=== PATIENT | male | born 1990 | race Caucasian/White ===

== ENCOUNTER 2017-02-15 08:32 | Emergency (ER) | payer OTHER ==
[2017-02-15 09:12] LABS: BASOPHILS 0.4 % (0.0-2.0); HEMATOCRIT 43.8 % (42.0-54.0); HEMOGLOBIN 15.3 g/dL (14.0-18.0); LYMPHOCYTES 21.3 % (20.0-40.0); LYMPHOCYTES# 1.2 X 10^3uL (0.8-3.8); MEAN CELL VOLUME 86.3 fL (80.0-100.0); MEAN CORPUSCULAR HEMOGLOBIN 30.2 pg (29.0-35.0); MEAN PLATELET VOLUME 7.2 fL (7.4-10.4); MONOCYTES 11.4 % (2.0-10.0); MONOCYTES# 0.7 X 10^3uL (0.2-1.0); NEUTROPHILS 66.9 % (54.0-75.0); NEUTROPHILS# 3.9 X 10^3uL (2.6-6.7); PLATELET COUNT 220 X 10^3uL (130-440); RED BLOOD COUNT 5.07 X 10^6uL (4.20-6.10); RED CELL DISTRIBUTION WIDTH 12.5 % (11.5-14.5)
[2017-02-15 09:16] LABS: A/G RATIO 1.6; ALBUMIN 4.5 g/dL (3.5-5.0); ALKALINE PHOSPHATASE 48 U/L (38-126); ALT 39 U/L (21-72); AST 27 U/L (17-59); BLOOD UREA NITROGEN 20 mg/dL (9-20); CALCIUM 9.8 mg/dL (8.4-10.2); CHLORIDE 101 mmol/L (98-107); EST GLOMERULAR FILTRATION RATE > 60 mL/min; GLUCOSE 104 mg/dL (70-100); POTASSIUM 3.8 mmol/L (3.5-5.1); SODIUM 137 mmol/L (137-145); TOTAL PROTEIN 7.4 g/dL (6.3-8.2)
[2017-02-15] MEDS ORDERED: KETOROLAC TROMETHAMINE 30 MG/ML VIAL ONE (09:49)
--- NOTE | 2017-02-15 10:54 | ER PHYSICIAN DOCUMENTATION ---
Physician Documentation [facility] Name:Vazquez Byrnes Age:26 yrs Sex:Male :1990 Arrival Date:02/15/2017 Time:08:32 Bed4 Private MD: Christophe Childress Disposition: 02/15 11:00 Chart complete. tl1 Disposition: 02/15/17 10:45 Discharged to Home/Self Care. Impression: Fever, Diarrhea. - Condition is Good. - Discharge Instructions: DIARRHEA, Unk Cause (Adult) Report Pendg, FEBRILE ILLNESS, Uncertain Cause (Adult), FEVER CONTROL (Adult). - Medical Reconciliation form form. - Follow up: Christophe Willard MD; When: 4- 6 days; Reason: Recheck today's complaints. Follow up: Private Physician; When: 4- 6 days; Reason: Recheck today's complaints. - Problem is new. - Symptoms have improved. - Notes: OK to take immodium 2mg after each watery stool, as long as you are not having blood in your stool, severe pain or are otherwise severely ill. Bring stool samples back to the lab when you get them. HPI: 08:53 This 26 yrs old Male presents to ER via Private Vehicle with complaints of tl1 Fever. 09:00 The patient reports fever, not measured (subjective). Onset: The symptom(s)/episode tl1 began/occurred gradually, 4 day(s) ago. Associated signs and symptoms: Pertinent positives: diarrhea, myalgias, Pertinent negatives: abdominal pain, chest pain, cough, earache, headache, sinus congestion, sinus drainage, shortness of breath, sore throat, vomiting. Severity of symptoms: At their worst the symptoms were moderate in the emergency department the symptoms are unchanged. The patient has not experienced similar symptoms in the past. Historical: - Allergies: No known drug Allergies; - Home Meds: 1. None - PMHx: None; - PSHx: mag-orbital fracture repair; - Tetanus: < 10 years. - Ebola Screening: : Patient negative for fever greater than or equal to 101.5 degrees Fahrenheit, and additional compatible Ebola Virus Disease symptoms. Patient denies exposure to infectious person. Patient reports travel to an Ebola-affected area in the 21 days before illness onset. Patient reports to have traveled to [facility]. - Immunization history: Flu Vaccine < 1 year. - Social history: Smoking status: Patient states was never smoker of tobacco. ROS: 09:00 Constitutional: Positive for body aches, fatigue, fever, malaise, poor PO intake. tl1 09:00 All other systems are negative. Exam: 09:00 Constitutional: This is a well developed, well nourished patient who is awake, alert, tl1 and in no acute distress. Head/Face: Normocephalic, atraumatic. Eyes: Pupils equal round and reactive to light, extra-ocular motions intact. Lids and lashes normal. Conjunctiva and sclera are non-icteric and not injected. Cornea within normal limits. Periorbital areas with no swelling, redness, or edema. ENT: Nares patent. No nasal discharge, no septal abnormalities noted. Tympanic membranes are normal and external auditory canals are clear. Oropharynx with no redness, swelling, or masses, exudates, or evidence of obstruction, uvula midline. Mucous membranes moist. Cardiovascular: Regular rate and rhythm with a normal S1 and S2. No gallops, murmurs, or rubs. Normal PMI, no JVD. No pulse deficits. 09:00 Respiratory: Lungs have equal breath sounds bilaterally, clear to auscultation and tl1 percussion. No rales, rhonchi or wheezes noted. No increased work of breathing, no retractions or nasal flaring. 09:00 Abdomen/GI: Inspection: abdomen appears normal, Bowel sounds: active, Palpation: soft, mild abdominal tenderness, in all quadrants. 09:00 Skin: Exam negative for acute changes. Vital Signs: 08:47 BP 124 / 72; Pulse 96; Resp 16; Temp 102.5; Pulse Ox 91% on R/A; Weight 74.84 kg; lp Height 6 ft. 0 in. (182.88 cm); Pain 3/10; 10:08 BP 105 / 60; Pulse 91; Resp 14; Pulse Ox 90% on R/A; lp 10:28 BP 103 / 61; Pulse 92; Resp 16; Pulse Ox 92% on R/A; lp 08:47 Body Mass Index 22.38 (74.84 kg, 182.88 cm) lp MDM: 08:53 Patient medically screened. tl1 10:00 Differential diagnosis: viral Infection, bacterial infection, gastroenteritis, tl1 influenza. Data reviewed: vital signs, nurses notes, lab test result(s), and as a result, I will discharge patient. Counseling: I had a detailed discussion with the patient and/or guardian regarding: the historical points, exam findings, and any diagnostic results supporting the discharge/admit diagnosis, lab results, the need for outpatient follow up, to return to the emergency department if symptoms worsen or persist or if there are any questions or concerns that arise at home. Response to treatment: the patient's symptoms have markedly improved after treatment, and as a result, I will discharge patient. ED course: I doubt Flu A. The clinical syndrome is not c/w this; it is probably a false positive test. And at any rate, he is 4 days into this and I doubt tamiflu ebony do any good. He was unable to provide a stool sample here, so he was sent home with a stool sample collection kit.. 02/15 09:25 Order name: INFLUENZA A/B; Complete Time: 09:35 EDMS 02/15 09:34 Interpretation: Abnormal: INFLUENZA A/B INF A POS, B NEG. tl1 02/15 09:27 Order name: COMPREHENSIVE METABOLIC PANEL; Complete Time: 19:59 EDMS 02/15 09:34 Interpretation: Normal. tl1 02/15 09:59 Order name: CBC AUTO DIF, MDIF/RMOR IF IND; Complete Time: 19:59 EDMS 02/16 19:58 Interpretation: WHITE BLOOD COUNT 5.8; HEMOGLOBIN 15.3; HEMATOCRIT 43.8; PLATELET COUNT tl1 220. Dispensed Medications: No medications were administered Signatures: Silvina Jennings RN RN lp Leigh, Tom, MD MD tl1
--- NOTE | 2017-02-15 10:54 | ER NURSING DOCUMENTATION ---
Nurse's Notes [facility] Name:Vazquez Byrnes Age:26 yrs Sex:Male :1990 Arrival Date:02/15/2017 Time:08:32 Bed4 Private MD: Diagnosis:Fever;Diarrhea Presentation: 02/15 08:46 Presenting complaint: Patient states: Fever, chills, diarrhea. Transition of care: lp Home. Notified ED Physician of Dr. Willard notified. 08:46 Acuity: ROBERT 3 lp 08:46 Method Of Arrival: Private Vehicle lp Triage Assessment: 08:49 Pertinent positives: chills, diarrhea, myalgias. General: Appears in no apparent lp distress, Behavior is appropriate for age. Pain: Denies pain. EENT: No deficits noted. Neuro: Level of Consciousness is awake, alert, Oriented to person, place, time, event, Room Maid are equal bilaterally Moves all extremities. Cardiovascular: Heart tones S1 S2. Respiratory: Airway is patent Respiratory effort is even, unlabored, Breath sounds are clear bilaterally. Reports cough that is dry. GI: Bowel sounds present X 4 quads. Reports diarrhea. : No deficits noted. Derm: Skin is healthy with good turgor, Skin is pink, warm & dry. Musculoskeletal: No deficits noted. Historical: - Allergies: No known drug Allergies; - Home Meds: 1. None - PMHx: None; - PSHx: mag-orbital fracture repair; - Tetanus: < 10 years. - Ebola Screening: : Patient negative for fever greater than or equal to 101.5 degrees Fahrenheit, and additional compatible Ebola Virus Disease symptoms. Patient denies exposure to infectious person. Patient reports travel to an Ebola-affected area in the 21 days before illness onset. Patient reports to have traveled to [facility]. - Immunization history: Flu Vaccine < 1 year. - Social history: Smoking status: Patient states was never smoker of tobacco. Screenin:50 Infectious Disease Risk None. Abuse screen: Denies threats or abuse. Denies injuries lp from another. Nutritional screening: No deficits noted. Vital Signs: 08:47 BP 124 / 72; Pulse 96; Resp 16; Temp 102.5; Pulse Ox 91% on R/A; Weight 74.84 kg; lp Height 6 ft. 0 in. (182.88 cm); Pain 3/10; 10:08 BP 105 / 60; Pulse 91; Resp 14; Pulse Ox 90% on R/A; lp 10:28 BP 103 / 61; Pulse 92; Resp 16; Pulse Ox 92% on R/A; lp 08:47 Body Mass Index 22.38 (74.84 kg, 182.88 cm) lp ED Course: 08:34 Patient arrived in ED. dp 08:46 Silvina Jennings, RN is Primary Nurse. lp 08:47 Triage completed. lp 08:[address] Willard notified. lp 08:50 Valuables Remains with patient Patient has correct armband on for positive lp identification. Bed in low position. Call light in reach. Side rails up X 1. 08:53 Christophe Willard MD is Attending Physician. tl1 08:59 Inserted peripheral IV: 20 gauge in left forearm and blood collected. 09:00 Labs drawn. (by ED staff). Sent per order to lab. lc 10:44 Christophe Willard MD is Referral Physician. tl1 10:44 Referral Physician role handed off by Christophe Willard MD tl1 Administered Medications: No medications were administered Outcome: 10:28 Discharged to home ambulatory. lp 10:28 Condition: good 10:28 Instructed on discharge instructions, follow up and referral plans. medication usage. 10:45 Discharge ordered by . tl1 10:53 Patient left the ED. lp 07 10:21 Discharge F/U Call: Unable to reach: no answer rh Signatures: Margarita Cota RN RN Silvina Jennings RN RN Christophe Willard MD MD tl1 Jesi Webber rh Lena Bustillos dp
[2017-02-21 14:30] LABS: WHITE BLOOD COUNT 5.8 X 10^3uL (3.9-10.7)
== END 2017-02-15 10:54 | disposition home or self-care (01) ==
LOC: ER 08:32
DX: R50.9 Fever, unspecified (principal); R19.7 Diarrhea, unspecified; M79.1 Myalgia; R53.83 Other fatigue; R10.84 Generalized abdominal pain
CPT/HCPCS: 80053; 85025; 87449; 99283; J1885